=== PATIENT | male | born 1970 | race Caucasian/White ===

== ENCOUNTER 2018-12-25 18:06 | Emergency (ER) | payer SELFPAY ==
[~2018-12-25] VITALS: Ht 180.3 cm; Wt 90.7 kg
[2018-12-25] MEDS ORDERED: ONDANSETRON HCL 4 MG/2 ML VIAL IV ONE (21:45)
[2018-12-25] MEDS ORDERED: MORPHINE SULFATE 4 MG/ML SYR/VIAL IV ONE (21:45)
[2018-12-25] MEDS ORDERED: LIDOCAINE W/ EPINEPHRINE 2% INJ 20ML VIAL IJ ONE (22:15)
[2018-12-25] MEDS ORDERED: SODIUM CHLORIDE 0.9% 1,000 ML IV ONE (22:15)
[2018-12-25 22:42] LABS: Basophils # (auto) 0.1 uL; Basophils % (auto) 0.7 % (0.0-2.0); Eosinophils # (auto) 0 uL; Eosinophils % (auto) 0.2 % (0.0-7.0); Lymphocytes # (auto) 1.3 uL; Lymphocytes % (auto) 13.5 % (10.0-50.0); Mean Corpuscular Hemoglobin 30.7 pg (28.0-32.0); Mean Corpuscular Hgb Conc. 34.8 g/dL (32.0-36.0); Mean Corpuscular Volume 88.2 fL (80.0-100.0); Monocytes % (auto) 10.6 % (0.0-12.0); Platelet Count (auto) 227 10^3/uL (140-450); Red Blood Cells 5.22 10^6/uL (4.5-5.90); Red Cell Distribution Width 13.2 % (11.8-14.3); White Blood Cell 9.3 10^3/uL (4.4-10.8)
[2018-12-25 22:54] LABS: Albumin 3.7 g/dL (3.4-5.0)
[2018-12-25 22:59] LABS: BUN/Creatinine Ratio 13.8; Bilirubin, Total 1.2 mg/dL (0.2-1.0); Total Protein 6.8 g/dL (6.4-8.2)
[2018-12-25 23:08] LABS: INR 1.04 (0.9-1.15); Partial Thromboplastin Time 27.4 sec (23.64-32.05)
[2018-12-25 23:32] VITALS: BP 123/91
[2018-12-26] MEDS ORDERED: HYDROcodone-ACET 10/325MG TAB PO ONE ×2 (00:15→00:30)
[2018-12-26] MEDS ORDERED: cefTRIAXone 1GM/50ML D5W 50 ML IV ONE (00:15)
[2018-12-26] MEDS ORDERED: ONDANSETRON HCL 4 MG/2 ML VIAL IV ONE ×2 (00:15→00:30)
[2018-12-26] MEDS ORDERED: cefTRIAXone W LIDOCAINE 1 GM IM IM ONE (00:30)
== END 2018-12-26 00:44 | disposition home or self-care (01) ==
LOC: ER 18:06
DX: S02.651B Fracture of angle of right mandible, initial encounter for open fracture (principal); S02.652A Fracture of angle of left mandible, initial encounter for closed fracture; S02.40EA Zygomatic fracture, right side, initial encounter for closed fracture; S16.1XXA Strain of muscle, fascia and tendon at neck level, initial encounter; Y04.0XXA Assault by unarmed brawl or fight, initial encounter; Y93.89 Activity, other specified; Y92.89 Other specified places as the place of occurrence of the external cause; Y99.8 Other external cause status
CPT/HCPCS: 12001; 36415; 70450; 70486; 72125; 80053; 85025; 85610; 85730; 96365; 96375; 96376; 99284; J0696; J2270; J2405